=== PATIENT | female | born 1985 | race American Indian/Alaskan Native ===

== ENCOUNTER 2017-04-16 02:04 | Emergency (ER) | payer SELFPAY ==
[2017-04-16 02:18] VITALS: PULSE 96; RESP 18; TEMP 98.4; O2SAT 100
--- NOTE | 2017-04-16 02:20 | ED PDOC ---
Arrival/HPI - General Time Seen by Provider: 04/16/17 02:08 Historian: Patient - History of Present Illness Narrative History of Present Illness (Text): 04/16/17 02:14 Emily Nguyen is a 32 year old female who presents to the Emergency department complaining of right ankle status post injury yesterday. Patient states she was kicked in the right ankle while playing soccer at 19:00 yesterday. Patient now complaining of pain to the area and notes she is unable to bear weight on the extremity secondary to pain. Patient states she took Ibuprofen at 22:00 with some relief. Patient denies any weakness/numbness/tingling in the extremity, calf pain, back pain, neck pain, headache, dizziness, or any other complaints. Time/Duration: 4-6 hours (19:00) Symptom Onset: Gradual Symptom Course: Unchanged Activities at Onset: Other (Soccer) Context: Standing Past Medical History - Provider Review Nursing Documentation Reviewed: Yes Family/Social History - Physician Review Nursing Documentation Reviewed: Yes Family/Social History: Unknown Family HX Allergies/Home Meds Allergies/Adverse Reactions: Allergies No Known Allergies Allergy (Verified 04/16/17 02:18) Review of Systems - Physician Review All systems were reviewed & negative as marked: Yes - Review of Systems Constitutional: Normal. absent: Fevers Eyes: Normal ENT: Normal Respiratory: Normal. absent: SOB, Cough Cardiovascular: Normal. absent: Chest Pain Gastrointestinal: Normal. absent: Abdominal Pain, Diarrhea, Nausea, Vomiting Genitourinary Female: Normal. absent: Dysuria, Frequency, Hematuria, Urine Output Changes Musculoskeletal: Arthralgias (+right ankle pain). absent: Back Pain, Neck Pain Skin: Normal. absent: Rash Neurological: Normal. absent: Headache, Dizziness Endocrine: Normal Hemo/Lymphatic: Normal Psychiatric: Normal Physical Exam Vital Signs Reviewed: Yes Vital Signs Temp Pulse Resp Pulse Ox 04/16/17 02:14 98.4 F 96 H 18 100 04/16/17 02:05 98.4 F 96 H 16 100 Temperature: Afebrile Blood Pressure: Normal Pulse: Regular Respiratory Rate: Normal Appearance: Positive for: Well-Appearing, Non-Toxic, Comfortable Pain Distress: None Mental Status: Positive for: Alert and Oriented X 3 - Systems Exam Head: Present: Atraumatic, Normocephalic Pupils: Present: PERRL Extroacular Muscles: Present: EOMI Conjunctiva: Present: Normal Mouth: Present: Moist Mucous Membranes Upper Extremity: Present: Normal Inspection. No: Cyanosis, Edema Lower Extremity: Present: NORMAL PULSES, Tenderness (lateral and medial right ankle tenderness), Swelling (Swelling and ecchymosis laterally and medially to right ankle), Neurovascularly Intact, Capillary Refill < 2 s. No: Edema, Cyanosis, Erythema, Deformity, Temperature Abnormalties Neurological: Present: GCS=15, CN II-XII Intact, Speech Normal Skin: Present: Warm, Dry, Normal Color. No: Rashes Psychiatric: Present: Alert, Oriented x 3, Normal Insight, Normal Concentration Medical Decision Making ED Course and Treatment: 04/16/17 02:14 Impression: 32 year old female complaining of right ankle pain s/p soccer injury. Differential Diagnosis included but are not limited to: sprain vs. fracture Plan: -- XR Right Ankle -- Reassess and disposition Progress Notes: Pt refused any pain medication, states she took Ibuprofen at 22:00. 04/16/17 02:36 Reviewed radiology, XR Right Ankle shows no fracture. 04/16/17 02:38 Pt placed in air cast and given crutches. On reevaluation the patient feels better and is in no acute distress. I have discussed the results and plan with the patient, who expresses understanding. Patient given the opportunity to ask question, all questions were answered and there is agreement with the plan to discharge the patient home. Patient is stable for discharge. Patient was instructed to follow up with physician/ orthopedics/clinic in 1-2 days or return if symptoms persist/worsen or new concerning symptoms arise. - RAD Interpretation Radiology Orders: 04/16/17 02:18 ANKLE RIGHT 3 VIEWS ROUTINE [RAD] Stat Neuro Ophthalmologist: ED Physician - Medication Orders Current Medication Orders: Discontinued Medications Home Med (*Refrigerator Open) Confirm Administered Dose 1 unit XX .STK-MED ONE Stop: 04/16/17 07:16 Tramadol HCl (Ultram) 50 mg PO STAT STA Stop: 04/16/17 02:42 Last Admin: 04/16/17 02:48 Dose: 50 mg - Scribe Statement The provider has reviewed the documentation as recorded by the Bruce Ro Provider Scribe Attestation: All medical record entries made by the Scribe were at my direction and personally dictated by me. I have reviewed the chart and agree that the record accurately reflects my personal performance of the history, physical exam, medical decision making, and the department course for this patient. I have also personally directed, reviewed, and agree with the discharge instructions and disposition. Disposition/Present on Arrival - Present on Arrival Any Indicators Present on Arrival: No - Disposition Have Diagnosis and Disposition been Completed?: Yes Diagnosis: Right ankle sprain Disposition: HOME/ ROUTINE Disposition Time: 02:40 Condition: GOOD Discharge Instructions (ExitCare): Ankle Sprain (ED) Additional Instructions: use air cast 4 to 5 days follow up with orthopedics Prescriptions: Tramadol HCl [Ultram] 50 mg PO QID #8 tab Referrals: Medhat Kay MD [Staff Provider] - Follow up with primary Forms: [employer] (Italian)
--- NOTE | 2017-04-16 08:35 | RAD ---
PROCEDURE: Right Ankle Radiographs. HISTORY: trauma COMPARISON: None FINDINGS: BONES: Normal. No fracture. JOINTS: Normal. No osteoarthritis. Ankle mortise maintained. Talar dome intact SOFT TISSUES: Mild soft tissue swelling OTHER FINDINGS: None. IMPRESSION: Negative study
== END 2017-04-16 03:22 | disposition home or self-care (01) ==
LOC: ED 02:04
DX: S93.401A Sprain of unspecified ligament of right ankle, initial encounter (principal); W50.1XXA Accidental kick by another person, initial encounter; Y93.66 Activity, soccer